=== PATIENT | female | born 1975 | race Caucasian/White ===

== ENCOUNTER 2019-02-17 21:36 | Emergency (ER) | payer MEDICAID ==
--- NOTE | 2019-02-17 21:51 | ER Report ---
History and Physical Time Seen By MD: 21:48 Hx. of Stated Complaint: pt states she has been having abdominal pain, and extreme pain in her legs/ knees for the last several weeks. states her primary doctors in [facility] told her that they are concerned about cancer in her legs and that she needs a colonoscopy screening. HPI/ROS CHIEF COMPLAINT: abdominal pain, GI bleeding, aches and knee pain HISTORY OF PRESENT ILLNESS: This is a 43 year old female. Recently moved to [place] from the [place] area for her 's job. Has been having problems with her abdomen. For several months now, has had intermittent bleeding with bowel movements. Not every movement. Last time noted as a few days ago, bright red blood, significant amount. Denies any melena. Has pain diffusely in the abdomen, worse in lower abdomen. Seems to get bloated when eating anything. Fairly chronic nausea, but no vomiting. Has had history of colonoscopy about 6 years ago with 11 polyps removed, 9 of which were reported as precancerous. Has had upper endoscopy as well without problems. Scopes done because her mother had history of colon cancer. Has had a hysterectomy with one of the ovaries removed. No other abdominal surgeries. There is a strong family history of Celiac disease. She also has chronic pains, throughout the body, but worse in her legs. She has had x-rays done a few weeks ago, and was told that she had inflammation in the soft tissues of the knees, and left knee proximal had a bone lesion of uncertain significance, but she was told that it was probably cancer. She has not had a chance to follow-up with this yet, but says that they were going to be getting further imaging done. Other medical problems include headaches, currently treated with amytriptyline and flexeril. History of hypothyroid, but not on medicines and recent labs showed normal. She has had urinary incontinence and has to urinate frequently/small amounts since her hysterectomy. REVIEW OF SYSTEMS: Constitutional: No fever or chills. Eyes: No vision changes. ENT: No sore throat. No congestion. No hearing changes. Cardiovascular: No chest pain. No palpitations. Respiratory: No cough. Only shortness of breath when she eats and then has bl oated feeling. Gastrointestinal: As above. Genitourinary: As above. Musculoskeletal: As above. Skin: No rashes. Neurological: As above. Allergies: Coded Allergies: No Known Drug Allergies (Unverified , 02/17/19) Home Meds Active Scripts Hydrocodone Bit/Acetaminophen (HYDROCODON-ACETAMINOPHEN 5-325) 1 Each Tablet, 1 EACH PO Q4H PRN for PAIN, #12 TAB 0 Refills Prov:YOJANA FRANCE MD 02/18/19 Prednisone (PREDNISONE) 20 Mg Tablet, 60 MG PO QDAY for 5 Days, #15 TAB 0 Refills Prov:YOJANA FRANCE MD 02/18/19 Omeprazole (OMEPRAZOLE) 20 Mg Capsule.dr, 1 CAP PO BID, #60 CAP 0 Refills Prov:YOJANA FRANCE MD 02/18/19 Sucralfate (CARAFATE) 1 Gm Tablet, 1 GM PO QID, #120 TAB 0 Refills Prov:YOJANA FRANCE MD 02/18/19 Reported Medications Topiramate (TOPAMAX) 50 Mg Tablet, 50 MG PO QDAY 02/17/19 Reviewed Nurses Notes: Yes Hx Substance Use Disorder: No Hx Alcohol Use: No Constitutional Vital Sign - Last 24 Hours 02/17/19 02/17/19 02/17/19 02/17/19 21:43 22:45 23:22 23:30 Temp 99.6 Pulse 99 87 Resp 16 B/P (MAP) 135/81 128/86 (100) 118/80 (93) Pulse Ox 96 95 O2 Delivery Room Air 02/17/19 02/18/19 02/18/19 02/18/19 23:45 00:00 00:15 00:30 Pulse 80 76 B/P (MAP) 122/79 (93) 141/123 (129) Pulse Ox 93 95 Intake and Output 02/17/19 02/17/19 02/18/19 15:03 23:03 07:03 Intake Total 1000 ml Balance 1000 ml Physical Exam General Appearance: The patient is alert. No acute distress, but is anxious. Non-toxic in appearance. Eyes: Pupils are equal, round. No pallor, injection or icterus. ENT: Mucous membranes are moist. Normal oral mucosa. Posterior oropharynx is normal. Neck: Supple and non tender. No lymphadenopathy. No thyromegaly or nodules. Respiratory: Lungs are clear to auscultation. There are no retractions or accessory muscle use. Cardiovascular: Regular rate and rhythm. No murmurs, gallops or rubs. Normal capillary refill. No edema. Gastrointestinal: Abdomen is soft, had discomfort in upper abdomen in epigastric and right upper quadrant, worse pain across entire lower abdomen, seems worse in left lower abdomen. Nondistended. No rebound but has some guarding. Normal active bowel sounds. No costovertebral angle tenderness with percussion. Neurological: Alert and oriented x3. No focal neurologic deficits, normal sensation in the legs when evaluation her knee pain. Skin: Warm and dry. No rashes. Musculoskeletal: She has pain throughout the knees. Pain worse in lateral side of left knee. No pain in the muscles with palpation. No tenderness in palpation of the cervical, thoracic and lumbar spine. DIFFERENTIAL DIAGNOSIS: After history and physical exam, differential diagnosis was considered for a patient with several different complaints. Knee pain with a report of lesion in the proximal left fibula. Also was told that she had inflammation in the soft tissues. Consider inflammatory or autoimmune diseases. Would like to image the left knee at this time. The abdominal pain and GI bleeding will be evaluated with labs and an abdominal CT scan tonight to help guide further treatment and workup. Medical Decision Making Data Points Result Diagram: 02/17/197 02/17/197 Laboratory Hematology Test 02/17/19 22:37 White Blood Count 12.7 k/uL (4.5-11.0) H Red Blood Count 4.71 M/uL (4.17-5.56) Hemoglobin 14.5 g/dL (12.0-16.0) Hematocrit 43.4 % (34.0-47.0) Mean Corpuscular Volume 92.1 fL (80.0-96.0) Mean Corpuscular Hemoglobin 30.9 pg (26.0-33.0) Mean Corpuscular Hemoglobin Concent 33.5 g/dL (32.0-36.0) Red Cell Distribution Width 12.6 % (11.5-14.5) Platelet Count 295 K/uL (150-450) Mean Platelet Volume 7.2 fL (7.2-11.1) Neutrophils (%) (Auto) 60.3 % (39.4-72.5) Lymphocytes (%) (Auto) 31.1 % (17.6-49.6) Monocytes (%) (Auto) 5.6 % (4.1-12.4) Eosinophils (%) (Auto) 2.0 % (0.4-6.7) Basophils (%) (Auto) 1.0 % (0.3-1.4) Nucleated RBC Relative Count (auto) 0.0 /100WBC Neutrophils # (Auto) 7.7 K/uL (2.0-7.4) H Lymphocytes # (Auto) 3.9 K/uL (1.3-3.6) H Monocytes # (Auto) 0.7 K/uL (0.3-1.0) Eosinophils # (Auto) 0.2 K/uL (0.0-0.5) Basophils # (Auto) 0.1 K/uL (0.0-0.1) Nucleated RBC Absolute Count (auto) 0.00 K/uL Erythrocyte Sedimentation Rate 17 mm/HOUR (0-20) Chemistry Test 02/17/19 22:37 Sodium Level 139 mmol/L (137-145) Potassium Level 4.0 mmol/L (3.5-5.0) Chloride Level 109 mmol/L (98-107) Carbon Dioxide Level 20 mmol/L (22-31) Blood Urea Nitrogen 12 mg/dl (7-18) Creatinine 0.90 mg/dl (0.52-1.04) Glomerular Filtration Rate Calc > 60.0 Random Glucose 111 mg/dl (75-110) Calcium Level 8.8 mg/dl (8.4-10.2) Total Bilirubin 0.7 mg/dl (0.2-1.3) Aspartate Amino Transf (AST/SGOT) 16 U/L (0-35) Alanine Aminotransferase (ALT/SGPT) 25 U/L (0-56) Alkaline Phosphatase 71 U/L (0-126) C-Reactive Protein < 0.5 mg/dl (<1.0) Total Protein 7.2 g/dl (6.3-8.2) Albumin 4.0 g/dl (3.5-5.0) Coagulation Test 02/17/19 22:37 Prothrombin Time 12.7 seconds (12.0-14.4) Prothromb Time International Ratio 0.95 Activated Partial Thromboplast Time 29 seconds (23-35) Urinalysis Test 02/17/19 21:37 Urine Color Yellow Urine Clarity Slightly-cloudy Urine pH 5.0 pH (4.8-9.5) Urine Specific [place] 1.028 Urine Protein Negative mg/dL (NEGATIVE) Urine Glucose (UA) Negative mg/dL (NEGATIVE) Urine Ketones Trace mg/dL (NEGATIVE) Urine Blood Negative (NEGATIVE) Urine Nitrite Negative (NEGATIVE) Urine Bilirubin Negative (NEGATIVE) Urine Urobilinogen 2.0 mg/dL (0.2-1.9) Urine Leukocyte Esterase Trace (NEGATIVE) Urine RBC 4 /HPF (0-2/HPF) Urine WBC 1 /HPF (0-5/HPF) Urine Squamous Epithelial Cells Many /LPF (</=FEW) Urine Transitional Epithelial Cells Few /LPF (NONE-FEW) Urine Calcium Oxalate Crystals Few /HPF (NONE) Urine Bacteria Few /HPF (NONE-FEW) Urine Mucus Few /HPF (NONE-FEW) EKG/Imaging Imaging Study: KNEE 4 VIEW LEFT Indication: Pain Comparison study: None available Findings: AP lateral oblique and sunrise views of the left knee demonstrates no evidence of acute fracture or dislocation. There is mild degenerative disease noted. There is no evidence of lytic or blastic bony lesions. There is no evidence of significant suprapatellar effusion. IMPRESSION: Mild degenerative disease. No evidence of acute bony abnormality. Report Dictated By: Clif Boo at 02/18/2019 12:06 AM Study: CT scan of the abdomen and pelvis with intravenous contrast Indication: GI bleed, abdominal pain Comparison study: None Contrast used: 75 mL Isovue-370 Technique: Multiple axial images were obtained through the abdomen and pelvis following intravenous administration of iodinated contrast. Coronal and sagittal two-dimensional reconstructions were made from the original data set. One of the following dose optimization techniques was utilized in the performance of this exam: Automated exposure control; adjustment of the mA and/or kV according to the patient's size; or use of an iterative reconstruction technique. Specific details can be referenced in the facility's radiology CT exam operational policy. Findings: Lung bases: Unremarkable Liver: Unremarkable Spleen: Unremarkable Gallbladder: Unremarkable Stomach: The stomach is unremarkable in morphology. There is high density material present within the fundus of the stomach. This may represent ingested medication or food. Alternatively, this may represent extravasated contrast. Small bowel:The small bowel is unremarkable in appearance. Large bowel: The large bowel is unremarkable in appearance. A normal appendix is visualized. Pancreas: Unremarkable Adrenal glands: There is a 2.0 x 2.0 x 1.9 cm mass present within the left adr enal gland. This is of intermediate density. This is not obviously a benign adenoma. Additional evaluation of this finding can be obtained with in and out of phase MR imaging or a repeat CT with and adrenal adenoma protocol. Kidneys: Unremarkable Retroperitoneum: Unremarkable Pelvis: Unremarkable Bony structures: Unremarkable IMPRESSION: High density material present within the fundus of the stomach. This likely represents ingested medication or food, however extravasated contrast cannot be ruled out. An incidental finding of a 2.0 cm left adrenal mass is identified. Dr. France was made aware of these findings at 12:05 AM. Report Dictated By: Clif Boo at 02/17/2019 11:56 PM ED Course/Re-evaluation Clinical Indication for ER IV: Hydration, IV Access ED Course Laboratory studies and imaging were obtained. I did discuss these results with the patient and her and one over the results of the imaging showing them the images. CT scan showed no acute abnormalities other than a little bit of a blush in the fundus of the stomach which could be calcium although the patient has not had any Tums or Pepto-Bismol tonight, but could represent some contrast extravasation into the stomach as well as there was any bleeding there. She does not have any melena or coffee grounds or anything like that and symptoms suggest more of a lower GI tract problem although cannot entirely rule out an upper GI tract problem at this point. I did recommend against any further NSAID usage at this point given the situation. Coagulation factors and blood count is normal. I did recommend follow-up with general surgery or gastroenterology for further evaluation of the GI bleeding and abdominal pain problems. CT scan also showed incidental finding of a lesion in the left adrenal gland which is likely a benign adenoma but cannot entirely say. Further imaging may be required including MRI or CT scan dedicated to adrenal gland and she will follow-up with primary care for this. For the chronic pain and other symptoms she is having, this could certainly be explained by an inflammatory type disease such as an autoimmune disease. GI symptoms could also be due to an inflammatory bowel disease so further workup in this regard needs to be done as well. I did recommend she get the images obtained in [place] for her knee as her x-ray tonight does not show any lesions in the bone. This can be followed up with primary care and further imaging or specialty referral can be done as needed. I recommended that she see primary care to establish care, and also see the general surgeons to get started on the gastrointestinal workup. After this, possible need to see orthopedic surgery or rheumatology would be the next consideration, and at the discretion of her primary care provider. I will start her on some Carafate for the stomach as well as proton pump inhibitor treatment for the stomach as well. For the musculoskeletal pain I gave her temporary prescription of Lortab, but recommended this would be only a short-term consideration and is not appropriate for long-term treatment. Also recommended a trial of prednisone 60 mg once a day for the next 5 days, but cautioned as this can be upsetting to the stomach as well. She will take this with food. She will stop it if there are any increase in her GI symptoms. Decision to Disposition Date: Feb 18, 2019 Decision to Disposition Time: 00:37 Depart Departure Latest Vital Signs Vital Signs Date Time Temp Pulse Resp B/P (MAP) Pulse Ox O2 Delivery O2 Flow Rate FiO2 02/18/19 00:30 141/123 (129) 02/18/19 00:15 76 95 02/17/19 21:43 99.6 16 Room Air Impression: Primary Impression: Gastrointestinal bleeding Additional Impression: Musculoskeletal pain Condition: Improved Disposition: HOME OR SELF-CARE New Scripts Hydrocodone Bit/Acetaminophen (HYDROCODON-ACETAMINOPHEN 5-325) 1 Each Tablet 1 EACH PO Q4H PRN for PAIN, #12 TAB 0 Refills Prov: YOJANA FRANCE MD 02/18/19 Prednisone (PREDNISONE) 20 Mg Tablet 60 MG PO QDAY for 5 Days, #15 TAB 0 Refills Prov: YOJANA FRANCE MD 02/18/19 Omeprazole (OMEPRAZOLE) 20 Mg Capsule. 1 CAP PO BID, #60 CAP 0 Refills Prov: YOJANA FRANCE MD 02/18/19 Sucralfate (CARAFATE) 1 Gm Tablet 1 GM PO QID, #120 TAB 0 Refills Prov: YOJANA FRANCE MD 02/18/19 Patient Instructions: Gastrointestinal Bleeding (ED), Musculoskeletal Pain (ED) Additional Instructions: For the GI bleeding, we would like to have you follow-up with one of our general surgeons in [facility], or follow-up with a industrial psychology teacher. Dr. Martel and Dr. Elder are the two general surgeons in [facility] and both can do a workup on you abdominal pain and GI bleeding. We recommend stopping current use of anti-inflammatory medicines at this time. We recommend starting a medicine to reduce stomach acid while waiting to get set up with one of these doctors. I would also recommend a medicine that coats your stomach called Carafate while waiting to be seen as well. You will take this 4 times a day. For your musculoskeletal pain, I would recommend that you establish with a primary care provider here in [facility] and they can proceed with further workup. It will be important for you to get the images of your knee showing the bone lesion done in [place] for further evaluation, so further imaging can be done. Evaluation by a store assistant may be one of the next steps given the various sy mptoms that you are having. We are going to try having you take a 5 days course of a steroid called Prednisone. This can be irritating to your stomach, so take it with food and if having any worsening stomach/GI symptoms, would recommend stopping it. For short term pain relief, we will provide some Lortab 5/325, one every 4 hours as needed for severe pain. This is temporary and is not going to be an option for you alf. Problem Qualifiers Primary Impression: Gastrointestinal bleeding GI bleed type/associated pathology: unspecified gastrointestinal hemorrhage type Qualified Codes: K92.2 - Gastrointestinal hemorrhage, unspecified YOJANA FRANCE MD Feb 17, 2019 21:51
[2019-02-17] MEDS ORDERED: TOPI-120 PO (21:54)
[2019-02-17] MEDS ORDERED: NS(*) 0.9% 1000 ML BAG 1,000 ML IV ONE (22:30)
[2019-02-17] MEDS ORDERED: ONDANSETRON 4 MG/2 ML VIAL IVP ONE (22:30)
[2019-02-17] MEDS ORDERED: PANTOPRAZOLE SOD 40 MG IV VIAL IVP ONE (22:30)
[2019-02-17] MEDS ORDERED: MORPHINE 4 MG/ML SDV IVP ONE (22:30)
[2019-02-17] MEDS ORDERED: ONDANSETRON 4 MG/2 ML VIAL ONE (22:40)
[2019-02-17] MEDS ORDERED: PANTOPRAZOLE SOD 40 MG IV VIAL ONE (22:40)
[2019-02-17] MEDS ORDERED: IOPAMIDOL 76% 100 ML INFUS BTL 100 ML ONE (22:47)
[2019-02-17 22:54] LABS: PLATELET COUNT, AUTOMATED 295 K/uL (150-450)
[2019-02-17 22:57] LABS: INR 0.95
--- NOTE | 2019-02-18 00:13 | RADIOLOGY IMAGING REPORT ---
FACILITY: [facility] PATIENT NAME: Maude Harrison : 1975 MR: [id number] V: [id number] EXAM DATE: ORDERING PHYSICIAN: YOJANA FRANCE TECHNOLOGIST: Location: [facility] Patient: Maude Harrison : 1975 Visit/Account:[id number] Date of Sevice: 02/17/2019 Study: KNEE 4 VIEW LEFT Indication: Pain Comparison study: None available Findings: AP lateral oblique and sunrise views of the left knee demonstrates no evidence of acute fra cture or dislocation. There is mild degenerative disease noted. There is no evidence of lytic or sharon tic bony lesions. There is no evidence of significant suprapatellar effusion. IMPRESSION: Mild degenerative disease. No evidence of acute bony abnormality. Report Dictated By: Clif Boo at 02/18/2019 12:06 AM Report E-Signed By: Clif Boo at 02/18/2019 12:06 AM WSN:[id number]
--- NOTE | 2019-02-18 00:13 | RADIOLOGY IMAGING REPORT ---
FACILITY: [facility] PATIENT NAME: Maude Harrison : 1975 MR: [id number] V: [id number] EXAM DATE: ORDERING PHYSICIAN: YOJANA RICHARDSON TECHNOLOGIST: Location: [facility] [place] Patient: Maude Harrison : 1975 Visit/Account:[id number] Date of Sevice: 02/17/2019 Study: CT scan of the abdomen and pelvis with intravenous contrast Indication: GI bleed, abdominal pain Comparison study: None Contrast used: 75 mL Isovue-370 Technique: Multiple axial images were obtained through the abdomen and pelvis following intravenous a dministration of iodinated contrast. Coronal and sagittal two-dimensional reconstructions were made f rom the original data set. One of the following dose optimization techniques was utilized in the performance of this exam: Autom ated exposure control; adjustment of the mA and/or kV according to the patient's size; or use of an i terative reconstruction technique. Specific details can be referenced in the facility's radiology C T exam operational policy. Findings: Lung bases: Unremarkable Liver: Unremarkable Spleen: Unremarkable Gallbladder: Unremarkable Stomach: The stomach is unremarkable in morphology. There is high density material present within the fundus of the stomach. This may represent ingested medication or food. Alternatively, this may repre sent extravasated contrast. Small bowel:The small bowel is unremarkable in appearance. Large bowel: The large bowel is unremarkable in appearance. A normal appendix is visualized. Pancreas: Unremarkable Adrenal glands: There is a 2.0 x 2.0 x 1.9 cm mass present within the left adrenal gland. This is of intermediate density. This is not obviously a benign adenoma. Additional evaluation of this finding c an be obtained with in and out of phase MR imaging or a repeat CT with and adrenal adenoma protocol. Kidneys: Unremarkable Retroperitoneum: Unremarkable Pelvis: Unremarkable Bony structures: Unremarkable IMPRESSION: High density material present within the fundus of the stomach. This likely represents in gested medication or food, however extravasated contrast cannot be ruled out. An incidental finding of a 2.0 cm left adrenal mass is identified. Dr. Richardson was made aware of these findings at 12:05 AM. Report Dictated By: Clif Boo at 02/17/2019 11:56 PM Report E-Signed By: Clif Boo at 02/18/2019 12:05 AM WSN:[id number]
[2019-02-18 00:30] VITALS: BP 141/123
[2019-02-18] MEDS ORDERED: OMEP-126 PO (00:48)
[2019-02-18] MEDS ORDERED: LOR5/325 PO (00:48)
[2019-02-18] MEDS ORDERED: PRED20TA6 PO (00:48)
[2019-02-18] MEDS ORDERED: SUCR1TAB85 PO (00:48)
== END 2019-02-18 00:53 | disposition home or self-care (01) ==
LOC: ER 22:00
DX: K92.2 Gastrointestinal hemorrhage, unspecified (principal); M79.604 Pain in right leg; M79.605 Pain in left leg
CPT/HCPCS: 73564; 74177; 81001; 84443; 85025; 85610; 85651; 85730; 86140; 96361; 96374; 96375; 99284; C9113; J2270; J2405; J7030; Q9967; 82040; 82247; 82310; 82374; 82435; 82565; 82947; 84075; 84132; 84155; 84295; 84450; 84460; 84520